=== PATIENT | female | born 1955 | race Two or more races ===

== ENCOUNTER 2023-11-26 13:10 | Outpatient (RCR) | payer BC, SELFPAY | END 2023-11-26 23:59 | disposition home or self-care (01) | LOC: RPT 13:10 | PROVIDERS: ATTENDING PHYSICIAN Podiatrist; FAMILY PHYSICIAN Family Medicine | DX: M25.571 Pain in right ankle and joints of right foot (principal); Z73.6 Limitation of activities due to disability | CPT/HCPCS: 97110; 97162 ==

== ENCOUNTER 2024-05-07 13:38 | Emergency (ER) | payer BC, SELFPAY ==
[2024-05-07 13:41] VITALS: BP 156/102
[2024-05-07 14:13] LABS: % Basophils 0.9 % (0-2); % Eosinophils 1.6 % (0-6); % Immature Granulocytes 0.2 % (0-0.5); % Lymphocytes 21.5 % (20.5-51.1); % Monocytes 12.1 % (1.7-9.3); % Neutrophils 63.7 % (42.2-75.2); Absolute Basophils 0.1 10^3/uL (0-0.2); Absolute Eosinophils 0.1 10^3/uL (0-0.7); Absolute Lymphocytes 1.2 10^3/uL (1.2-3.4); Absolute Monocytes 0.7 10^3/uL (0.1-0.6); Absolute Neutrophils 3.7 10^3/uL (1.4-6.5); Hematocrit 37.8 % (37.0-47.0); Hemoglobin 12.4 g/dL (12.0-16.0); Mean Corp Hgb Conc. 32.8 g/dL (33.0-37.0); Mean Corpuscular Hgb 29.2 pg (27.0-31.0); Mean Corpuscular Volume 88.9 fL (81.0-99.0); Mean Platelet Volume 10.7 fL (7.4-10.4); Nucleated Red Blood Cells % 0 %; Platelet Count 267 10^3/uL (130-400); Red Blood Cell Count 4.25 10^6/uL (4.20-5.40); Red Cell Dist. Width 14.2 % (11.5-14.5); White Blood Cell Count 5.8 10^3/uL (4.8-10.8)
[2024-05-07 14:27] LABS: ALT (SGPT) 24 U/L (0-35); AST (SGOT) 29 U/L (14-36); Albumin 4.6 g/dl (3.5-5.0); Alkaline Phosphatase 114 U/L (38-126); Blood Urea Nitrogen 17 mg/dl (7-17); Calcium 10.3 mg/dl (8.4-10.2); Carbon Dioxide 29 mmol/L (22-30); Chloride 98 mmol/L (98-107); Glucose 206 mg/dl (70-99); Potassium 4.3 mmol/L (3.5-5.1); Sodium 136 mmol/L (135-145); Total Bilirubin 0.3 mg/dl (0.2-1.3); Total Protein 7.8 g/dl (6.3-8.2); eGFR > 60.00
[2024-05-07 14:38] LABS: Troponin I < 0.012 ng/ml
[2024-05-07 15:33] VITALS: BP 147/96
[2024-05-07 16:04] VITALS: BP 132/83
[2024-05-07 16:21] VITALS: BMI 27.9
--- NOTE | 2024-05-07 16:21 | ED.GENMED ---
History of Present Illness
General
Chief Complaint: Heart Rate Problem
Source: patient
Exam Limitations: none
Time Seen by Provider: 05/07/24 16:01
Nursing documentation reviewed up to this point in time: agreed with
History of Present Illness
History of Present Illness:
Patient presents to ED secondary to intermittent 'feeling in chest' lasting minutes to hours over the past 2 months. 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
than 130 bpm. Patient had seen her primary care physician who had recommended patient to be evaluated as an outpatient with boarding house cook. Earliest appointment that she was able to obtain is in 2 months. When she does have 'feeling in chest',
patient does not have any associated shortness of breath, weakness, dizziness, diaphoresis, or chest pain. Denies previous history of similar symptoms. Of note, patient had injury at work resulting in Achilles tendon rupture January 2024 and has
been less active. Patient returned to work 2 weeks ago. Patient has had intermittent swelling of the right leg. Denies previous history of blood clots or family history of blood clots.
Past History
Past History
ED Past Medical History: Other (Rheumatoid arthritis, GERD, glucose intolerance)
Social History
Tobacco: Non-smoker
Alcohol: None
Family History
Family History: Negative Diabetes, Hypertension or CAD
Review of Systems
Review of Systems
Allergies reviewed?: Yes
All Other Systems: ROS reviewed and negative except as documented in HPI and ROS
Constitutional: Reports no symptoms
Respiratory: Reports no symptoms
Cardiac: Reports no symptoms
ABD/GI: Reports no symptoms
Musculoskeletal: Reports edema
Skin: Reports no symptoms
Neurological: Reports no symptoms
Phy Exam
Physical Exam
Physical Exam:
Physical Exam
General: no apparent distress, not acutely ill. afebrile
Head: nc/at. eomi
Neck: supple. no meningeal signs.
Heart: s1/s2 regular rate and rhythm, no murmur. equal radial pulses.
Lungs: no acute respiratory distress. clear bilaterally
Abdomen: normal bowel sounds. not tender.
Neuro: alert and oriented. no focal neurological deficits
Skin: no rash
Psychiatric: well kept. interactive and cooperative
Extremities: no edema. no calf tenderness.
Course
Orders/Labs/Results
Orders:
Orders
05/07/24 13:41
ECG [Electrocardiogram (*1)] Urgent
Reason for Study: Tachycardia
EKG- Treatment ONCE
05/07/24 13:59
Complete Blood Count/With Diff Urgent
Comprehensive Metabolic Panel Urgent
Free T4 Urgent
Magnesium Urgent
Comment: ADD
TSH Reflex To Free T4 Urgent
Comment: ADD
Troponin I Urgent
05/07/24 16:03
Add On- LAB Urgent
Tests Added?: magnesium, TSH to reflex free T4
05/07/24 16:21
D-Dimer Urgent
Abnormal Lab Results
05/07/24 05/07/24
13:59 16:21
MCHC 32.8 L g/dL
(33.0-37.0)
MPV 10.7 H fL
(7.4-10.4)
Absolute Monos (auto) 0.7 H 10^3/uL
(0.1-0.6)
Monocytes % 12.1 H %
(1.7-9.3)
D-Dimer 0.77 H ug/mlFEU
(0.00-0.50)
Glucose 206 H mg/dl
(70-99)
Calcium 10.3 H mg/dl
(8.4-10.2)
TSH (Reflex) < 0.02 L uIU/ml
(0.47-4.68)
05/07/24 13:59
05/07/24 13:59
Vital Signs
Initial and Last Documented VS:
Initial Vital Signs
Temp Pulse Resp BP Pulse Ox
97.8 F 102 22 156/102 96
05/07/24 13:41 05/07/24 13:41 05/07/24 13:41 05/07/24 13:41 05/07/24 13:41
Last Documented Vital Signs
Temp Pulse Resp BP Pulse Ox
97.8 F 74 20 122/70 98
05/07/24 13:41 05/07/24 17:00 05/07/24 17:00 05/07/24 17:00 05/07/24 16:45
MDM/Problems Addressed
MDM/Problems Addressed:
D-dimer checked secondary to recent lower leg surgery, i.e. Achilles tendon repair. When age-adjusted, D-dimer value minimally above acceptable level. As such, no indication for any further studies at this time.
Patient without any tachycardia during observation. Discussed with on-call boarding house cook, . Cardiology office will contact patient at home to schedule for Holter monitoring, as well as an appointment for an outpatient consultation.
Patient otherwise is afebrile, hemodynamically stable, and without any distress, at time of discharge.
*EKG
Interpreted by ED Provider?: Yes
EKG Intrepretation Date: 05/07/24
Heart Rate: 96
Rate: normal
Rhythm: sinus
Isom: normal axis
Interval: normal interval
*Critical Care Note
Total Time (30-74mins, 75-104mins- exclusive of procedures): Not Applicable
ED Attending Note
-
Portions of this chart may have been created with voice recognition software.� Occasional wrong word or��sound alike� substitutions may have occurred due to the inherent limitations of voice recognition software.
Discharge Plan
Departure
Patient Disposition: Home (Routine Discharge)
Date of Disposition: 05/07/24
Time of Disposition: 17:10
Patient with high blood pressure during this ER visit?: Yes
Discharge Problem:
Tachycardia
Instructions: Tachycardia
Referrals:
Sebastián Ann DO [Family Provider] -
NONE,* [Active] -
Lena Worthy DO [Active] - 05/28/24 10:40 am (You have a cardiology appointment at the [facility]. Please call with questions. )
Activity Restrictions/Additional Instructions:
The cardiology office will call you tomorrow to arrange a time to place the heart monitor.
Interventions
Interventions:
*Risk Screen - Suicide Last Done: 05/07/24 13:42
*General Assessment Last Done: 05/07/24 13:42
*Neglect/Abuse Screening Last Done: 05/07/24 13:42
ED- Fall Risk Assessment Last Done: 05/07/24 16:26
*Nursing Disposition Last Done: 05/07/24 17:21
ED- Cardiac Assessment Last Done: 05/07/24 16:26
ED- Pulmonary Assessment Last Done: 05/07/24 16:26
Discharge Date and Time
Discharge Date/Time: 05/07/24 17:22
Print Language: CZECH
[2024-05-07 16:52] LABS: D-Dimer 0.77 ug/mlFEU (0.00-0.50)
[2024-05-07 17:00] VITALS: BP 122/70
[2024-05-07 17:12] LABS: Magnesium 1.8 mg/dl (1.6-2.3)
[2024-05-07 17:57] LABS: TSH Reflex To Free T4 < 0.02 uIU/ml (0.47-4.68)
[2024-05-07 18:26] LABS: Free T4 1.38 ng/dl (0.78-2.19)
== END 2024-05-07 17:22 | disposition home or self-care (01) ==
LOC: EMR 13:38
PROVIDERS: Emergency Medicine; EMERGENCY PHYSICIAN Emergency Medicine; FAMILY PHYSICIAN Family Medicine
DX: R00.0 Tachycardia, unspecified (principal); R22.41 Localized swelling, mass and lump, right lower limb; R03.0 Elevated blood-pressure reading, without diagnosis of hypertension; M06.9 Rheumatoid arthritis, unspecified; K21.9 Gastro-esophageal reflux disease without esophagitis; E74.39 Other disorders of intestinal carbohydrate absorption; E11.9 Type 2 diabetes mellitus without complications; Z79.84 Long term (current) use of oral hypoglycemic drugs
CPT/HCPCS: 99283; 80053; 83735; 84439; 84443; 84484; 85025; 85379; 93005

== ENCOUNTER → 2024-05-28 07:04 | Outpatient (REF) | payer OTHER, SELFPAY | LOC: PAVMRI 07:04 | PROVIDERS: ATTENDING PHYSICIAN Pain Medicine Interventional Pain Medicine | DX: M54.16 Radiculopathy, lumbar region (principal) | CPT/HCPCS: 72148 ==

== ENCOUNTER → 2024-06-03 09:00 | Outpatient (REF) | payer BC, SELFPAY | LOC: DHCBC/DCA 09:00 | PROVIDERS: ATTENDING PHYSICIAN Internal Medicine Cardiovascular Disease; FAMILY PHYSICIAN Family Medicine | DX: R07.89 Other chest pain (principal); R94.31 Abnormal electrocardiogram [ECG] [EKG] | CPT/HCPCS: 78452; 93017; 93306; A9500; J2785 ==